=== PATIENT | female | born 1965 | race Caucasian/White ===

== ENCOUNTER → 2016-11-14 | Outpatient (CLI) | payer MEDICAID ==
--- NOTE | 2016-11-14 17:33 | US ---
EXAMINATION TYPE: US thyroid st tissue head/neck DATE OF EXAM: 11/14/2016 COMPARISON: NONE CLINICAL HISTORY: Abn TSH R94.6. GLAND SIZE: Right Lobe: 5.9 x 1.8 x 1.9 cm Overall Parenchyma: homogenous Left Lobe: 5.6 x 2.6 x 2.4 cm Overall Parenchyma: homogeneous Isthmus Thickness: 0.6 cm NODULES RIGHT: # of nodules measured on right: 0 Several subcentimeter cystic areas LEFT: # of nodules measured on left: 2 1. 2.6 X 1.6 x 2.2 cm hypoechoic solid nodule at the lower pole with well-defined margins; present with microcalcifications. This nodule is wider than tall and shows intranodular vascularity. Prior size: no prior 2. 1.6 X 0.7 x 1.0 cm hypoechoic cystic nodule at the lower pole with well-defined margins; . This nodule is wider than tall and shows no intranodular vascularity. Prior size: no prior ISTHMUS: # of nodules measured in the isthmus: 0 Bilateral neck scanned, no evidence of lymphadenopathy. Nodules as described, several subcentimeter c ystic areas throughout gland. IMPRESSION: Findings as above. There is a dominant solid mass in the lower pole left thyroid lobe. I have no old exam to compare. There is a intermediate suspicion of malignancy.
== END | disposition home or self-care (01) ==
LOC: RADUSWWP 16:56
PROVIDERS: ATTEND Family Medicine
DX: E07.9 Disorder of thyroid, unspecified (principal)
CPT/HCPCS: 76536

== ENCOUNTER 2016-12-19 12:18 | Day surgery (SDC) | payer MEDICAID ==
[2016-12-19 13:07] LABS: Glucose,Whole Blood 136 mg/dL (75-99)
[2016-12-19 13:10] VITALS: RESP 16; TEMP 97.6
[2016-12-19 14:05] VITALS: BP 121/65; PULSE 86
--- NOTE | 2016-12-19 15:17 | US ---
ULTRASOUND GUIDED FNA THYROID BIOPSY: CLINICAL HISTORY: 2 left-sided thyroid nodules FINDINGS: The procedure was explained to the patient. The risks, complications, benefits and alternatives were discussed and any questions were answered. Informed consent was obtained. Patient was placed supin e on the ultrasound table and prepped and draped in the usual sterile fashion. Utilizing a 25 gauge needle, five passes were made into the dominant solid thyroid nodule. Aspiration of a cyst measuring 1.6 cm within the left thyroid also performed. Patient was stable throughout the procedure. Pathology is pending. All elements of maximal barrier technique were utilized. IMPRESSION: 1. Successful ultrasound guided FNA thyroid biopsy of the 2 requested nodules. Note is made that one of the nodules was a cyst.
== END 2016-12-19 14:00 | disposition home or self-care (01) ==
LOC: RADPROMAIN 12:18
PROVIDERS: ATTEND Physician Assistant Medical
DX: E04.1 Nontoxic single thyroid nodule (principal)
CPT/HCPCS: 10022; 76942; 88173; 88305

== ENCOUNTER → 2023-04-10 | Outpatient (CLI) | payer OTHER ==
--- NOTE | 2023-04-10 12:35 | XR ---
EXAMINATION TYPE: XR chest 2V DATE OF EXAM: 04/10/2023 10:51 AM CLINICAL INDICATION:Female, 58 years old with history of R059 COUGH; [facility] COMPARISON: Chest radiographs from TECHNIQUE: XR chest 2V Frontal and lateral views of the chest. FINDINGS: Lungs/Pleura: There is flattening of the diaphragm with increased lucency of the lungs. No evidence o f pneumothorax, pleural effusion or focal consolidation. Pulmonary vascularity: Unremarkable. Heart/mediastinum: Cardiomediastinal silhouette is unremarkable. Musculoskeletal: No acute osseous pathology. IMPRESSION: 1. No acute cardiopulmonary disease process. 2. COPD changes.
== END | disposition home or self-care (01) ==
LOC: RADXRYALE 10:40
PROVIDERS: ATTEND Physician Assistant Medical
DX: J44.9 Chronic obstructive pulmonary disease, unspecified (principal); R05.9 Cough, unspecified
CPT/HCPCS: 71046

== ENCOUNTER → 2023-10-15 | Outpatient (CLI) | payer BC ==
--- NOTE | 2023-10-15 14:55 | US ---
EXAMINATION TYPE: US carotid duplex BILAT DATE OF EXAM: 10/15/2023 COMPARISON: NONE CLINICAL INDICATION: Female, 58 years old with history of R011 cardiac murmur, [id number] occ and stenosis I10 Hypertension; TECHNIQUE: Carotid duplex ultrasound examination. Indirect Doppler criteria was utilized. FINDINGS: EXAM MEASUREMENTS: RIGHT: Peak Systolic Velocity (PSV) cm/sec ----- Right CCA: 76.9 ----- Right ICA: 135.0 ----- Right ECA: 156.9 ICA/CCA ratio: 1.8 RIGHT: End Diastole cm/sec ----- Right CCA: 17.3 ----- Right ICA: 39.7 ----- Right ECA: 9.1 LEFT: Peak Systolic Velocity (PSV) cm/sec ----- Left CCA: 98.6 ----- Left ICA: 164.7 ----- Left ECA: 152.9 ICA/CCA ratio: 1.7 LEFT: End Diastole cm/sec ----- Left CCA: 19.3 ----- Left ICA: 42.6 ----- Left ECA: 15.0 VERTEBRALS (direction of flow): Right Vertebral: Antegrade Left Vertebral: Antegrade Rhythm: Normal CLERICAL ASSIGNER NOTES: Left ICA velocities appear to be elevated. Plaque seen in the left bulb Elevated velocities identified within the bilateral ICA. Mild atherosclerotic plaque within the right carotid bulb. Vung-al-sootnmyh atherosclerotic plaque within the left carotid bulb. IMPRESSION: Less than 50% stenosis within the origins of the bilateral internal carotid arteries. Criteria for Assigning % of Stenosis / Diameter reduction (Estimation based on the indirect measurements of the internal carotid artery velocities (ICA PSV). 1. Normal (no stenosis)=ICA PSV < 125 cm/s: ratio < 2.0: ICA EDV<40 cm/s. 2. Less than 50% stenosis=ICA PSV < 125 cm/s: ratio < 2.0: ICA EDV<40 cm/s. 3. 50 to 69% stenosis=ICA PSV of 125 to 230 cm/s: ration 2.0 ? 4.0: ICA EDV 40-100 cm/s. 4. Greater than 70% stenosis to near occlusion= ICA PSV > 230 cm/s: ratio > 4.0: ICA EDV > 100 cm/s. 5. Near occlusion= ICA PSV velocities may be low or undetectable: variable ratio and ICA EDV. 6. Total occlusion=unable to detect flow.
--- NOTE | 2023-10-16 07:05 | CA ---
Transthoracic Echo Report Name: Yahaira Soria Age: 58 Gender: F : 1965 Exam Date: 10/15/2023 14:51 Exam Location: [place] [facility] Ht (in): 63 Wt (lb): 154 Ordering Physician: Jose Moulton DO Attending/Referring Phys: Christina Turner PAC Pmp Marietta Grant RDCS Procedure CPT: Indications: R011 cardiac murmur, I6523 occ and stenosis I10 Hy Cardiac Hx: Technical Quality: Good Contrast 1: Total Dose (mL): Contrast 2: Total Dose (mL): MEASUREMENTS (Male / Female) Normal Values 2D ECHO LV Diastolic Diameter PLAX 4.1 cm 4.2 - 5.9 / 3.9 - 5.3 cm LV Systolic Diameter PLAX 2.7 cm IVS Diastolic Thickness 1.1 cm 0.6 - 1.0 / 0.6 - 0.9 cm LVPW Diastolic Thickness 1.3 cm 0.6 - 1.0 / 0.6 - 0.9 cm LV Relative Wall Thickness 0.6 RV Internal Dim ED PLAX 2.5 cm LVOT Diameter 2.0 cm LA Systolic Diameter LX 3.2 cm 3.0 - 4.0 / 2.7 - 3.8 cm LV Diastolic Volume MOD BP 52.2 cm??? 67 - 155 / 56 - 104 cm??? LV Systolic Volume MOD BP 16.5 cm??? 22 - 58 / 19 - 49 cm??? LV Ejection Fraction MOD BP 68.3 % >= 55 % LV Cardiac Index MOD BP 1682.1 cm???/min???m??? LV Diastolic Volume MOD 4C 54.3 cm??? LV Systolic Volume MOD 4C 14.7 cm??? LV Ejection Fraction MOD 4C 72.9 % LV Cardiac Index MOD 4C 1867.0 cm???/min???m??? LV Diastolic Length 4C 6.6 cm LV Systolic Length 4C 5.0 cm LV Diastolic Volume MOD 2C 48.8 cm??? LV Systolic Volume MOD 2C 17.2 cm??? LV Ejection Fraction MOD 2C 64.8 % LV Cardiac Index MOD 2C 1492.3 cm???/min???m??? LV Diastolic Length 2C 6.5 cm LV Systolic Length 2C 5.5 cm LA Volume 42.0 cm??? 18 - 58 / 22 - 52 cm??? LA Volume Index 23.6 cm???/m??? 16 - 28 cm???/m??? M-MODE Aortic Root Diameter MM 2.4 cm LA Systolic Diameter MM 3.0 cm LA Ao Ratio MM 1.3 AV Cusp Separation MM 1.5 cm DOPPLER AV Peak Velocity 174.7 cm/s AV Peak Gradient 12.2 mmHg AV Mean Velocity 124.8 cm/s AV Mean Gradient 7.1 mmHg AV Velocity Time Integral 39.0 cm LVOT Peak Velocity 85.6 cm/s LVOT Peak Gradient 2.9 mmHg LVOT Velocity Time Integral 22.6 cm LVOT Stroke Volume 68.6 cm??? LVOT Stroke Volume Index 39.6 ml/m??? LVOT Cardiac Index 3236.2 cm???/min???m??? AV Area Cont Eq vti 1.8 cm??? AV Area Cont Eq pk 1.5 cm??? MV Area PHT 2.2 cm??? Mitral E Point Velocity 85.3 cm/s Mitral A Point Velocity 99.9 cm/s Mitral E to A Ratio 0.9 MV Deceleration Time 337.2 ms TR Peak Velocity 195.1 cm/s TR Peak Gradient 15.2 mmHg FINDINGS Left Ventricle Left ventricular ejection fraction is estimated at 60-65 %.Mildly increased left ventricular wall thickness. . No obvious regional wall motion abnormalities. Left ventricular cavity size normal. Right Ventricle Normal right ventricular size and function. Right ventricular systolic pressure within normal limits. Right Atrium Normal right atrial size. Left Atrium Normal left atrial size. Lipomatous interatrial septum. Mitral Valve Structurally normal mitral valve. Trace mitral regurgitation. No mitral stenosis. Aortic Valve Trileaflet aortic valve. Trace aortic regurgitation. Tricuspid Valve Structurally normal tricuspid valve. Trace tricuspid regurgitation. No tricuspid stenosis. Pulmonic Valve Structurally normal pulmonic valve. Trace pulmonic regurgitation. No pulmonic stenosis. Pericardium No pericardial or pleural effusion. Aorta CONCLUSIONS 1. Normal left ventricular size and systolic function 2. Trace mitral, aortic and tricuspid regurgitation Previewed by: Dr. Nisha Madrid MD (Electronically Signed) Final Date: 16 October 2023 07:05
== END | disposition home or self-care (01) ==
LOC: RADUSWWP 14:14
PROVIDERS: ATTEND Family Medicine
DX: R01.1 Cardiac murmur, unspecified (principal); I65.23 Occlusion and stenosis of bilateral carotid arteries; I10 Essential (primary) hypertension; E78.2 Mixed hyperlipidemia; E11.65 Type 2 diabetes mellitus with hyperglycemia
CPT/HCPCS: 93306; 93880